=== PATIENT | male | born 1955 | race American Indian/Alaskan Native ===

== ENCOUNTER 2017-09-24 09:43 | Outpatient (CLI) | payer BC ==
--- NOTE | 2017-09-24 19:28 | XRay Report ---
FINAL REPORT EXAM: XR HIP 2-3V RT HISTORY: HISTORY OF total RIGHT HIP ARTHROPLASTY TECHNIQUE: AP view of the pelvis and 2 coned-down views of the right hip. PRIORS: None. FINDINGS: A total right hip prosthesis is in place in satisfactory position and alignment. There is severe osteoarthritis involving the left hip joint with [id number] appearance, subchondral cyst formation on both sides of the joint, and flattening of the left femoral head. No evidence for acute fracture or dislocation is seen. The soft tissues demonstrate vascular calcification. Bony mineralization is normal. IMPRESSION: No acute soft tissue or bony abnormality noted in the right hip. Satisfactory appearance of the right hip joint replacement. Severe osteoarthritis in the left hip joint is noted.
== END 2017-09-24 09:44 | disposition home or self-care (01) ==
LOC: SPVIMAG 09:43
PROVIDERS: ATTEND Orthopaedic Surgery Sports Medicine
DX: M25.851 Other specified joint disorders, right hip (principal); M16.12 Unilateral primary osteoarthritis, left hip; M25.852 Other specified joint disorders, left hip; Z96.641 Presence of right artificial hip joint